=== PATIENT | male | born 2000 | race Two or more races ===

== ENCOUNTER 2022-02-22 22:03 | Emergency (ER) | payer OTHER ==
[~2022-02-22] VITALS: Ht 180.3 cm; Wt 68.0 kg
[2022-02-22 22:03] VITALS: BP 138/71
[2022-02-23] MEDS ORDERED: TETANUS-DIPTH-ACEL PERTUSSIS 0.5ML SYR Tdap IM ONE (00:15)
== END 2022-02-23 01:34 | disposition home or self-care (01) ==
LOC: ER 22:03
DX: S91.331A Puncture wound without foreign body, right foot, initial encounter (principal); W45.0XXA Nail entering through skin, initial encounter; Y93.89 Activity, other specified; Y92.89 Other specified places as the place of occurrence of the external cause; Y99.8 Other external cause status
CPT/HCPCS: 90471; 90715

== ENCOUNTER 2023-11-18 08:13 | Emergency (ER) | payer OTHER ==
[~2023-11-18] VITALS: Ht 180.3 cm; Wt 78.7 kg
[2023-11-18] MEDS ORDERED: BACI-14 EX (10:03)
[2023-11-18 10:43] VITALS: BP 125/83; PULSE 64; RESP 18; TEMP 97.9; O2SAT 99
== END 2023-11-18 10:45 | disposition home or self-care (01) ==
LOC: ER 08:13
DX: T22.211A Burn of second degree of right forearm, initial encounter (principal); X08.8XXA Exposure to other specified smoke, fire and flames, initial encounter; Y93.89 Activity, other specified; Y92.89 Other specified places as the place of occurrence of the external cause; Y99.8 Other external cause status
CPT/HCPCS: 10160

== ENCOUNTER 2023-11-28 23:38 | Emergency (ER) | payer OTHER ==
[~2023-11-28] VITALS: Ht 180.3 cm; Wt 79.2 kg
[~2023-11-28 23:38] MED LIST: BACI-14 EX
[2023-11-28 23:44] VITALS: BP 143/62; PULSE 88; RESP 16; O2SAT 98
[2023-11-29] MEDS ORDERED: IBUP-1456 PO (03:55)
[2023-11-29] MEDS ORDERED: CLIN1CAP70 PO (03:55)
== END 2023-11-29 04:01 | disposition home or self-care (01) ==
LOC: ER 23:38
DX: T22.211D Burn of second degree of right forearm, subsequent encounter (principal); X11.8XXD Contact with other hot tap-water, subsequent encounter